=== PATIENT | female | born 1990 | race Caucasian/White ===

== ENCOUNTER 2016-12-21 10:19 | Outpatient (CLI) | payer MEDICAID | END 2016-12-21 10:20 | disposition home or self-care (01) | DX: Z00.00 Encounter for general adult medical examination without abnormal findings (principal) ==

== ENCOUNTER 2017-04-03 20:53 | Outpatient (CLI) | payer BC ==
--- NOTE | 2017-04-04 09:56 | Ultrasound Report ---
PELVIC ULTRASOUND: 04/03/2017 CLINICAL INDICATION: IUD insertion, pelvic pain. TECHNIQUE: Transabdominal pelvic ultrasound performed for global evaluation. Transvaginal pelvic ul trasound performed for detailed evaluation. Real-time scanning performed and static images obtained. FINDINGS: The uterus is anteverted, measuring 7.4 x 5.0 x 3.9 cm. The endometrium measures 5 mm. A n IUD is noted in the endometrial canal. The right ovary is normal, measuring 2.8 x 2.4 x 1.3 cm. The left ovary measures 6.2 x 6.1 x 4.2 cm, and contains a 5.1 x 4.7 x 4.6 cm simple cyst. Normal fl ow is seen to the surrounding ovarian parenchyma. No free fluid is present. IMPRESSION: A 5.1 CM LEFT OVARIAN CYST, WITH NORMAL OVARIAN FLOW TO THE SURROUNDING PARENCHYMA. NOR MAL POSITION OF IUD IN THE ENDOMETRIAL CANAL. JOB #: [id number] EXT JOB #:[id number]
== END 2017-04-03 20:54 | disposition home or self-care (01) ==
LOC: DI 20:53
PROVIDERS: ATTEND Family Medicine
DX: N83.201 Unspecified ovarian cyst, right side (principal); Z97.5 Presence of (intrauterine) contraceptive device
CPT/HCPCS: 76830; 76856

== ENCOUNTER 2017-05-28 18:45 | Emergency (ER) | payer OTHER, BC ==
--- NOTE | 2017-05-28 19:38 | XRAY Preliminary Report ---
Exam: XR Ankle 3 View RT IMPRESSION: 2 very small flake fractures off the tip of the lateral malleolus. [facility] SITE ID: [id number]
--- NOTE | 2017-05-28 19:46 | XRAY Report ---
EXAM: RIGHT ANKLE RADIOGRAPHY EXAM DATE: 05/28/2017 07:06 PM. CLINICAL HISTORY: Lateral malleolar pain after twisting injury today. COMPARISON: None. TECHNIQUE: 3 views. FINDINGS: Bones: 2 x 5 mm linear flake fracture 3 mm inferior to the tip the lateral malleolus. Additional 1-mm flake fracture also in this same region. Joints: Normal. No effusion. No subluxations. The ankle mortise is normally aligned. Soft Tissues: Moderate edema over the lateral malleolus centered at the tip. IMPRESSION: Two very small flake fractures off the tip of the lateral malleolus. [facility] Referring Provider Line: [phone] SITE ID: [id number]
--- NOTE | 2017-05-28 20:13 | ED Physician Documentation ---
PD HPI LOWER EXT INJURY - Stated complaint Stated Complaint: RT ANKLE INJ - Chief complaint Chief Complaint: Ext Problem - History obtained from History obtained from: Patient - History of Present Illness PD HPI LOW EXT INJURY LOCATION: Right, Ankle Type of injury: Twist Where injury occurred: Work Timing - onset: How many hours ago (4) Timing - details: Abrupt onset Improved by: Rest, Ice, Immobilization Worsened by: Moving, Palpating Associated symptoms: Swelling, Discolored. No: Weakness, Numbness Contributing factors: No: Anticoagulated, Prior ortho surgery Similar symptoms before: Has not had sx before Recently seen: Not recently seen - Additional information Additional information: Patient is a 27 year old female with no significant past medical history who is presenting to the emergency department for ankle pain. patient states that she was at work and stepped on a toy and inverted her ankle. Patient denied any other pain or injuries at this time. Review of Systems Constitutional: denies: Fever, Chills Eyes: reports: Decreased vision, Reviewed and negative Ears: reports: Reviewed and negative Nose: denies: Epistaxis Cardiac: denies: Chest pain / pressure GI: denies: Nausea, Vomiting Skin: denies: Rash, Lesions, Abrasion (s), Laceration (s) Musculoskeletal: reports: Extremity pain, Joint pain, Extremity swelling, Joint swelling, Pain with weight bearing Neurologic: denies: Generalized weakness, Focal weakness, Numbness, Head injury Immunocompromised: denies: Immunocompromised PD PAST MEDICAL HISTORY - Past Medical History Past Medical History: Yes Cardiovascular: None Neuro: None GI: None : None HEENT: None Psych: Depression, Anxiety Musculoskeletal: None Other Past Medical History: IBS, vestibular migraine - Past Surgical History Past Surgical History: Yes General: Cholecystectomy HEENT: Myringotomy (tubes), Tonsil/Adenoidectomy - Present Medications Home Medications: Ambulatory Orders Medication Instructions Recorded Confirmed Albuterol Sulf [Ventolin Hfa 05/28/17 Inhaler] Alprazolam 05/28/17 Butalb/Acetaminophen/Caffeine 05/28/17 [Jkkzhy-Ryheotah-Mglo 50-300-40] Cetirizine [ZyrTEC] 05/28/17 Desipramine HCl 05/28/17 Fluticasone [Flonase] 05/28/17 Meclizine [Antivert] 05/28/17 Mometasone Furoate [Asmanex] 05/28/17 Olopatadine HCl 05/28/17 Sumatriptan [Imitrex] 05/28/17 - Allergies Allergies/Adverse Reactions: Allergies Allergy/AdvReac Type Severity Reaction Status Date / Time amoxicillin [Amoxicillin] Allergy Hives Verified 05/28/17 20:10 cefaclor [From Ceclor] Allergy Hives Verified 05/28/17 20:10 doxycycline Allergy Hives Verified 05/28/17 20:10 - Social History Does the pt smoke?: No Smoking Status: Never smoker Does the pt drink ETOH?: No Does the pt have substance abuse?: No - Immunizations Immunizations are current?: Yes - POLST Patient has POLST: No PD ED PE NORMAL - Vitals Vital signs reviewed: Yes - General General: Alert and oriented X 3, No acute distress - HEENT HEENT: Atraumatic, PERRL - Neck Neck: Supple, no meningeal sign, No bony TTP - Cardiac Cardiac: RRR, No murmur - Respiratory Respiratory: No respiratory distress - Abdomen Abdomen: Soft, Non tender, Non distended - Back Back: No spinal TTP - Derm Derm: Normal color, Warm and dry, No rash - Neuro Neuro: Alert and oriented X 3, No motor deficit, No sensory deficit, Normal speech - Psych Psych: Normal mood PD ED PE EXPANDED - Extremities Extremities: Right ankle (tenderness and swelling or right lateral maleolus) Results - Vitals Vitals: Vital Signs - 24 hr 05/28/17 05/28/17 18:57 20:25 Temperature 36.5 C 36.9 C Heart Rate 108 H 100 Respiratory 18 18 Rate Blood Pressure 115/83 H 132/84 H O2 Saturation 99 96 Oxygen O2 Source Room air - Rads (name of study) rt ankle Radiology: Final report received (very small avulsion fracture) PD MEDICAL DECISION MAKING - ED course Complexity details: reviewed old records, reviewed results, re-evaluated patient , considered differential, d/w patient ED course: Patient was seen and examined at bedside. patient had already been sent to imaging. When patient returned from imaging the results were reviewed. Patient was found to have small fracture. Patient was placed in a boot and was stable for discharge with outpatient follow up. Departure - Departure Disposition: 01 Home, Self Care Clinical Impression: Avulsion fracture of ankle Condition: Good Instructions: ED Boot Aircast Walker, ED Fx Ankle Lateral Malleolus Follow-Up: Nikky Lei MD [Provider Admit Priv/Credential] - Within 1 week Comments: Your symptoms today are being caused by a small fracture on the outside of your ankle due to the liagments pulling on it. It should heal on its own over the next 4-6 weeks. You should wear the boot for comfort. It is important that you elevate your foot and ice it at least 4 times a day. You can take motrin or tylenol as needed for pain. You should follow up with Dr. Lei if your symptoms persist for more than the next 14 days. Discharge Date/Time: 05/28/17 20:32
[2017-05-28 20:26] VITALS: BP 132/84
== END 2017-05-28 20:32 | disposition home or self-care (01) ==
LOC: ED 18:45
DX: S82.61XA Displaced fracture of lateral malleolus of right fibula, initial encounter for closed fracture (principal); W22.8XXA Striking against or struck by other objects, initial encounter; X50.1XXA Overexertion from prolonged static or awkward postures, initial encounter; Y99.0 Civilian activity done for income or pay
CPT/HCPCS: 99283

== ENCOUNTER 2017-09-05 08:32 | Outpatient (CLI) | payer OTHER, BC ==
--- NOTE | 2017-09-05 13:10 | MRI Report ---
EXAM: RIGHT ANKLE/HINDFOOT MRI WITHOUT CONTRAST EXAM DATE: 09/05/2017 09:46 AM. CLINICAL HISTORY: RT ANKLE LATERAL PAIN. COMPARISON: RIGHT ANKLE RADIOGRAPHY 07/03/2017. TECHNIQUE: Multiplanar, multisequence T1-weighted and fluid-sensitive sequences of the ankle/hindfoot without contrast. Other: None. FINDINGS: Bones: No fractures or subluxations. No marrow edema. No bone lesions. Articular Cartilage: Unremarkable. Ligaments: The anterior and posterior tibiofibular, anterior and posterior talofibular, and calcaneof ibular ligaments are intact. The deep and superficial deltoid and spring ligaments are intact. Anterior Tendons: The tibialis anterior, extensor hallucis longus, and extensor digitorum longus tend ons are unremarkable. Medial Tendons: The tibialis posterior, flexor digitorum longus, and flexor hallucis longus tendons a re unremarkable. Lateral Tendons: Mild tendinosis of the peroneus brevis with mildly increased signal, without tear. T he peroneus longus is intact. Mild peroneal tenosynovitis is associated with small amount of fluid wi thin the sheath. Achilles Tendon: The Achilles tendon is unremarkable. Musculature: No edema or fatty atrophy. Other: No effusions. The contents of the sinus tarsi and tarsal tunnel are unremarkable. No plantar f asciitis. Nonspecific mild subcutaneous edema around the ankle, more medially. IMPRESSION: 1. Mild tendinosis of the peroneus brevis without tear. The peroneus longus is intact. 2. Mild peroneal tenosynovitis is associated. 3. No other significant MRI abnormalities in the ankle/hindfoot. [facility] MUSCULOSKELETAL RADIOLOGY SECTION Referring Provider Line: [phone] SITE ID: [id number]
== END 2017-09-05 08:33 | disposition home or self-care (01) ==
LOC: DI 08:32
PROVIDERS: ATTEND Orthopaedic Surgery
DX: M65.871 Other synovitis and tenosynovitis, right ankle and foot (principal)

== ENCOUNTER 2018-02-10 08:00 | Outpatient (CLI) | payer OTHER ==
[2018-02-10 13:30] LABS: BASOPHILS % (AUTO) 0.5 %; EOSINOPHILS # (AUTO) 0.4 10^3/uL (0.0-0.7); EOSINOPHILS % (AUTO) 4.6 %; HGB - HEMOGLOBIN 14.7 g/dL (12.0-16.0); LYMPHOCYTES # (AUTO) 3.6 10^3/uL (1.5-3.5); LYMPHOCYTES % (AUTO) 43.6 %; MEAN CORPUSCULAR HEMOGLOBIN 30.3 pg (27.0-31.0); MEAN CORPUSCULAR HGB CONC 34.3 g/dL (32.0-36.0); MEAN CORPUSCULAR VOLUME 88.2 fL (81.0-99.0); MEAN PLATELET VOLUME 8.2 fL (7.9-10.8); MONOCYTES # (AUTO) 0.5 10^3/uL (0.0-1.0); MONOCYTES % (AUTO) 6.4 %; NEUTROPHILS # (AUTO) 3.7 10^3/uL (1.5-6.6); NEUTROPHILS % (AUTO) 44.9 %; PLT - PLATELET COUNT 253 10^3/uL (130-450); RED BLOOD COUNT 4.84 10^6/uL (4.20-5.40); RED CELL DISTRIBUTION WIDTH 13.3 % (12.0-15.0); WHITE BLOOD COUNT 8.3 x10^3/uL (4.8-10.8)
[2018-02-10 13:55] LABS: ALBUMIN 3.4 g/dL (3.2-5.5); ALBUMIN/GLOBULIN RATIO 1.1 (1.0-2.2); ALKALINE PHOSPHATASE 60 IU/L (42-121); ALT ALANINE AMINOTRANSFERASE 23 IU/L (10-60); AST ASPARTATE AMINOTRANSFERASE 24 IU/L (10-42); BILIRUBIN,TOTAL 0.6 mg/dL (0.2-1.0); BUN - BLOOD UREA NITROGEN 15 mg/dL (6-20); CALCIUM 8.6 mg/dL (8.5-10.3); CARBON DIOXIDE - CO2 24 mmol/L (21-32); CHLORIDE 102 mmol/L (101-111); CHOL/HDL RATIO 5.1 (<4.4); CHOLESTEROL 188 mg/dL; CREATININE 0.7 mg/dL (0.4-1.0); GFR - MDRD 100 (>89); GLUCOSE 101 mg/dL (70-100); HDL CHOLESTEROL 37 mg/dL; LDL CHOLESTEROL,CALCULATED 124 mg/dL; LDL/HDL RATIO 3.4 (<4.4); SODIUM 134 mmol/L (135-145); TOTAL PROTEIN 6.6 g/dL (6.7-8.2); VLDL CHOLESTEROL 27 mg/dL
[2018-02-10 13:57] LABS: HB2 TOTAL 16.3 g/dL; HEMOGLOBIN A1C 0.58 g/dL; HEMOGLOBIN A1C % 5.4 % (4.6-6.2)
== END 2018-02-10 08:01 ==
LOC: LAB.WCP 08:00
PROVIDERS: ATTEND Family Medicine
DX: Z00.00 Encounter for general adult medical examination without abnormal findings (principal)
CPT/HCPCS: 36415; 80053; 80061; 83036; 83721; 84443; 85025

== ENCOUNTER 2018-03-03 08:00 | Outpatient (CLI) | payer OTHER | END 2018-03-03 08:01 | disposition home or self-care (01) | LOC: LAB.R 08:00 | PROVIDERS: ATTEND Family Medicine | DX: R50.9 Fever, unspecified (principal) | CPT/HCPCS: 87275; 87276 ==